=== PATIENT | male | born 1955 | race Caucasian/White ===

== ENCOUNTER → 2024-09-20 09:47 | Outpatient (BNVA) | payer MEDICARE, MEDICAID, SELFPAY | PROVIDERS: PCP Specialist/Technologist Athletic Trainer; Referring Provider Specialist/Technologist Athletic Trainer; Visit Provider Podiatrist | DX: E11.42 Type 2 diabetes mellitus with diabetic polyneuropathy (principal); I87.2 Venous insufficiency (chronic) (peripheral); R25.2 Cramp and spasm; B35.1 Tinea unguium; L60.3 Nail dystrophy; R20.2 Paresthesia of skin | CPT/HCPCS: 11721; 99204 ==

== ENCOUNTER → 2024-12-19 09:56 | Outpatient (BNVA) | payer MEDICARE, MEDICAID, SELFPAY | PROVIDERS: PCP Specialist/Technologist Athletic Trainer; Referring Provider Specialist/Technologist Athletic Trainer; Visit Provider Podiatrist | DX: L60.3 Nail dystrophy (principal); B35.1 Tinea unguium; E11.42 Type 2 diabetes mellitus with diabetic polyneuropathy; I87.2 Venous insufficiency (chronic) (peripheral); R25.2 Cramp and spasm; G62.9 Polyneuropathy, unspecified; I83.93 Asymptomatic varicose veins of bilateral lower extremities; L65.9 Nonscarring hair loss, unspecified; R20.8 Other disturbances of skin sensation; L60.2 Onychogryphosis; L60.8 Other nail disorders | CPT/HCPCS: 11721; 99204 ==